=== PATIENT | female | born 1930 | race Caucasian/White ===

== ENCOUNTER 2017-03-20 08:58 | Day surgery (SDC) | payer MEDICARE ==
--- NOTE | 2017-03-13 17:53 | HP ---
PREOPERATIVE HISTORY AND PHYSICAL: DATE OF ADMISSION/SURGERY: 03/20/17 DATE OF OFFICE VISIT/ENCOUNTER: 03/12/17 ATTENDING SURGEON: Amina Cabrera MD * (DICTATED BY RADHA LYNN) PROCEDURE: Right wrist carpal tunnel release. CHIEF COMPLAINT: Bilateral hand numbness and tingling. HISTORY OF PRESENT ILLNESS: This is an 87-year-old female, who complains of numbness and tingling in her bilateral hands, currently worse on the right than on the left. She has had a diagnosis of carpal tunnel syndrome for quite some time that typically was worse on the left, but over the past 6 weeks, has gotten markedly worse on the right. The right is most bothersome now. She has trouble using either hand for her activities of daily life. 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 She is interested in pursuing surgical intervention for her right carpal tunnel at this time as it is most bothersome. She has consented to proceed with her right wrist carpal tunnel release. PAST MEDICAL HISTORY: 1. Balance issues. 2. Hiatal hernia. 3. Mitral valve disorder. 4. Mild urine incontinence. PAST SURGICAL HISTORY: 1. Bladder neck suspension. 2. Cystocele repair. 3. Right total knee arthroplasty. 4. Hysterectomy. 5. Left total knee arthroplasty. 6. Bariatric surgery. 7. Left total hip arthroplasty. CURRENT MEDICATIONS: 1. Aspirin 325 mg daily. 2. Atenolol 25 mg 4 times a day. 3. Beta-carotene 2 daily. 4. Calcium, magnesium, and vitamin D daily. 5. CoQ10 100 mg 2 tabs daily. 6. Estradiol 0.25 mg/24 hours 1 patch weekly. 7. Flax seed oil 1000 mg daily. 8. Hydrochlorothiazide 25 mg half tab to a tab daily p.r.n. edema. 9. Ibuprofen 200 mg 2 tabs as needed. 10. Lutein 20 mg 1 tab daily. 11. Magnesium gluconate 1 daily. 12. Melatonin mg nightly. 13. Multivitamin 1 daily. 14. Potassium 500 mg 1 tab daily. 15. Probiotic acidophilus 1 tab with each meal. 16. Vitamin B complex daily. 17. Vitamin D 1000 units 4 daily. 18. Vitamin E 1000 units daily. ALLERGIES: MORPHINE causes hives. FAMILY MEDICAL HISTORY: Significant for cancer. SOCIAL HISTORY: The patient is retired. She denies tobacco use, recreational drug use, and does not drink alcohol. REVIEW OF SYSTEMS: General: Negative for fevers, chills, or night sweats. No known anesthesia problems. HEENT: Negative for headache, lightheadedness, or syncopal episodes. Integumentary: Negative for abrasions, lesions, or open wounds. Cardiothoracic: Negative for hypertension, chest pain, palpitations, or edema. Pulmonary: Negative for chest pain with exertion, chronic cough, COPD. GI: Negative for nausea, vomiting, diarrhea, constipation, or GERD. : Positive for urinary incontinence. Negative for nocturia, frequency, history of UTIs, or kidney problems. Musculoskeletal: Positive for current complaint. Negative for chronic or intermittent back pain or fractures. Neurological: Negative for history of seizure or stroke. Endocrine: Negative for diabetes or thyroid issues. Hematologic: Negative for easy bruising, anemia, excessive bleeding, or history of DVT. Infectious Disease: Negative for a history of MRSA, hepatitis C or HIV. PHYSICAL EXAMINATION GENERAL: Well-developed, well-nourished 87-year-old female, in no acute distress. VITAL SIGNS: Height 5 feet 7-1/2 inches, weight 200 pounds. Pulse rate is ____ _, blood pressure 115/61. HEENT: Normocephalic, atraumatic. Pupils are equal, round, and reactive to light and accommodation. Extraocular movements are intact. Throat is clear. NECK: Supple. No palpable lymph nodes. PULMONARY: Lungs are clear to auscultation bilaterally. No wheezes, rales, or rhonchi. CARDIOVASCULAR: Regular rate and rhythm. S1, S2. No murmurs, rubs, or gallops. No edema. ABDOMEN: Positive bowel sounds, soft, nontender. MUSCULOSKELETAL: On exam of bilateral hands, she has obvious thenar wasting in both hands, more noticeable on the left than on the right. She has weakness with thumb abduction bilaterally. She had mild weakness with finger abductions , but no interosseous wasting. She has decreased sensation in the median nerve distribution in both hands. She has a positive Tinel's sign over the median nerve bilaterally. She has good range of motion in her fingers and fingers intact. EMG nerve conduction studies showed severe carpal tunnel bilaterally. NEUROLOGIC: Alert and oriented x3. Cranial nerves II through XII are intact. IMPRESSION: Bilateral carpal tunnel syndrome, symptomatically worse on the right than on the left. PLAN: The patient is scheduled to undergo a right wrist carpal tunnel release with Dr. Cabrera on 03/20/17. She will return to the office in 10 to 14 days postop for followup and suture removal. A prescription for Ultracet was e- scribed to the patient's pharmacy for postoperative pain management. RADHA LYNN [id number]/[facility] #: [id number] MARY
[~2017-03-20 08:58] MED LIST: Buffered Lidocaine 0.9% SYRIN* 5 ML/SYR SYRINGE INTRADERM ONE
[2017-03-20] MEDS ORDERED: Lidocaine 1% INJ* 10 MG/ML 30 ML SDV ONE (10:40)
[2017-03-20] MEDS ORDERED: Propofol* 10 MG/ML 20 ML BTL IV PUSH ONE (10:48)
[2017-03-20] MEDS ORDERED: Lidocaine 2% PF * 5 ML VIAL ONE (10:48)
[2017-03-20 11:33] VITALS: BP 138/62
--- NOTE | 2017-03-20 23:29 | OP ---
DATE OF OPERATION: 03/20/17 [facility] DATE OF : 30 SURGEON: Amina harvey MD [employer] OPERATOR: RADHA Mckenzie ANESTHESIOLOGIST: Pedro Carlson DO ANESTHESIA: Local MAC. PRE-OP DIAGNOSIS: Right carpal tunnel syndrome. POST-OP DIAGNOSIS: Right carpal tunnel syndrome. OPERATIVE PROCEDURE: Right carpal tunnel release. ESTIMATED BLOOD LOSS: Zero. TOURNIQUET TIME: 5 minutes. INDICATIONS FOR PROCEDURE: Luciana is an 87-year-old female with numbness and tingling in the median nerve distribution of her right hand. She presents for right carpal tunnel release. DESCRIPTION OF PROCEDURE: The patient was brought to the operating room, was given a sedation anesthetic and a local infiltration of 10 cc of 1% plain lidocaine. The skin of her right hand and forearm was prepped and draped in the usual sterile fashion. The hand and forearm were exsanguinated and the tourniquet elevated to 250 mmHg. A longitudinal incision was made in the palm in line with the ring finger. We dissected through the subcutaneous tissue down to the transverse carpal ligament. The ligament was divided sharply with a knife and then more proximally with the scissors. The nerve was dissected free from the surrounding tissue and there was an area of moderate compression at the mid portion of the ligament. The wound was irrigated and the skin edges reapproximated with 4-0 nylon suture. The wound was dressed with Xeroform, 4x4 , Webril, and an Bryce wrap. The patient tolerated the procedure well and was brought to the recovery room in good condition. [id number]/[facility] #: [id number] [facility]
== END 2017-03-20 11:50 | disposition home or self-care (01) ==
LOC: OREAST 08:58
PROVIDERS: ATTEND Orthopaedic Surgery
DX: G56.01 Carpal tunnel syndrome, right upper limb (principal); I34.0 Nonrheumatic mitral (valve) insufficiency; R00.2 Palpitations
CPT/HCPCS: J2001; J2704